=== PATIENT | male | born 1970 | race African-American/Black ===

== ENCOUNTER 2018-07-15 17:55 | Emergency (ER) | payer SELFPAY ==
[~2018-07-15] VITALS: Ht 172.7 cm; Wt 61.5 kg
--- NOTE | 2018-07-15 18:06 | PHYS DOC ---
Adult General Chief Complaint Chief Complaint: FINGER INJURY HPI HPI Patient is a 47 year old M who was using a grinder operator external tool last week and cut his L index finger. He was not seen at that time and states it was a minor cut but now the finger is very swollen and tender. He thinks his last tetanus was maybe 5 years ago. Pt is R hand dominant. He denies any significant medical history, specifically he is not diabetic. Review of Systems Review of Systems Constitutional: Denies fever or chills Respiratory: Denies cough or shortness of breath Cardiovascular: Denies chest pain GI: Denies abdominal pain, nausea, vomiting, bloody stools or diarrhea Musculoskeletal: Denies back pain. Reports L finger pain. Integument: Reports swelling and redness finger. Neurologic: Denies headache, focal weakness or sensory changes All other systems were reviewed and found to be within normal limits, except as documented in this note. Current Medications Current Medications Current Medications Medications (Trade) Dose Ordered Sig/Isidoro Start Time Stop Time Status Last Admin Dose Admin Clindamycin Phosphate 50 ml @ 100 mls/hr 1X ONCE 07/15/18 18:15 07/15/18 18:44 DC 07/15/18 18:15 100 MLS/HR Diphtheria/ Tetanus/Acell Pertussis (Boostrix) 0.5 ml ONCE ONCE 07/15/18 18:15 07/15/18 18:16 DC 07/15/18 18:15 0.5 ML Allergies Allergies Allergies Coded Allergies Type Severity Reaction Last Updated Verified No Known Drug Allergies 07/15/18 No Physical Exam Physical Exam Constitutional: Well developed, well nourished, no acute distress, non-toxic appearance. Neck: Normal range of motion, no tenderness, supple, no stridor. Cardiovascular:Heart rate regular rhythm, no murmur Lungs & Thorax: Bilateral breath sounds clear to auscultation Abdomen: Bowel sounds normal, soft, no tenderness, no masses, no pulsatile masses. Skin: Erythema and swelling of L index finger. No obvious laceration noted. Back: No tenderness, no CVA tenderness. Extremities: Pain in L index finger, swelling and pain from MCP to fingertip. He has normal cap refill, but limited ROM concerning for tenosynovitis. Neurologic: Alert and oriented X 3, normal motor function, normal sensory function, no focal deficits noted. Psychologic: Affect normal, judgement normal, mood normal. Current Patient Data Vital Signs Vital Signs Date Time Temp Pulse Resp B/P (MAP) Pulse Ox O2 Delivery O2 Flow Rate FiO2 07/15/18 19:55 98.1 84 126/68 (87) 98 98.1 07/15/18 19:16 16 07/15/18 18:05 Room Air Lab Values Laboratory Tests Test 07/15/18 18:20 07/15/18 18:30 White Blood Count 8.7 x10^3/uL (4.0-11.0) Red Blood Count 4.79 x10^6/uL (4.30-5.70) Hemoglobin 15.9 g/dL (13.0-17.5) Hematocrit 45.1 % (39.0-53.0) Mean Corpuscular Volume 94 fL (79-100) Mean Corpuscular Hemoglobin 33 pg (25-35) Mean Corpuscular Hemoglobin Concent 35 g/dL (31-37) Red Cell Distribution Width 13.2 % (11.5-14.5) Platelet Count 315 x10^3/uL (140-400) Neutrophils (%) (Auto) 61 % (31-73) Lymphocytes (%) (Auto) 27 % (24-48) Monocytes (%) (Auto) 7 % (0-9) Eosinophils (%) (Auto) 4 % (0-3) H Basophils (%) (Auto) 1 % (0-3) Neutrophils # (Auto) 5.3 x10^3uL (1.8-7.7) Lymphocytes # (Auto) 2.4 x10^3/uL (1.0-4.8) Monocytes # (Auto) 0.6 x10^3/uL (0.0-1.1) Eosinophils # (Auto) 0.4 x10^3/uL (0.0-0.7) Basophils # (Auto) 0.1 x10^3/uL (0.0-0.2) Sodium Level 141 mmol/L (136-145) Potassium Level 3.8 mmol/L (3.5-5.1) Chloride Level 103 mmol/L (98-107) Carbon Dioxide Level 31 mmol/L (21-32) Anion Gap 7 (6-14) Blood Urea Nitrogen 11 mg/dL (8-26) Creatinine 1.1 mg/dL (0.7-1.3) Estimated GFR (Cockcroft-Gault) 87.2 BUN/Creatinine Ratio 10 (6-20) Glucose Level 98 mg/dL (70-99) Calcium Level 9.3 mg/dL (8.5-10.1) Total Bilirubin 0.9 mg/dL (0.2-1.0) Aspartate Amino Transferase (AST) 11 U/L (15-37) L Alanine Aminotransferase (ALT) 14 U/L (16-63) L Alkaline Phosphatase 77 U/L (46-116) Total Protein 8.3 g/dL (6.4-8.2) H Albumin 3.6 g/dL (3.4-5.0) Albumin/Globulin Ratio 0.8 (1.0-1.7) L Lactic Acid Level 1.3 mmol/L (0.4-2.0) Laboratory Tests 07/15/18 18:20 Laboratory Tests 07/15/18 18:20 Microbiology 07/15/18 Blood Culture - Preliminary, Resulted NO GROWTH AFTER 4 DAYS EKG EKG [] Radiology/Procedures Radiology/Procedures Xray shows possible gas and cannot r/o osteomyelitis. Course & Med Decision Making Course & Med Decision Making Pertinent Labs and Imaging studies reviewed. (See chart for details) Discussed test results with pt, with clinical symptoms of tenosynovitis and possible osteomyelitis on xray, I recommended admission for IV abx and ortho consult. Pt declines admission. He wants to try oral antibiotics at this time. I again emphasized that this infection could be very serious and that finger infections are difficult to treat and he is at risk of losing his finger or if worsens even his hand. Pt wants to go home. I have asked pt to be rechecked in 24-48 hours and sooner if worsens. Discussed that if finger is the same or worse after 48 hours, he will need admission and he agrees. Dragon Disclaimer Dragon Disclaimer This electronic medical record was generated, in whole or in part, using a voice recognition dictation system. Departure Departure Impression: Primary Impression: Finger infection Additional Impression: Tenosynovitis Disposition: HOME, SELF-CARE Condition: IMPROVED Referrals: RAFAT LEDESMA MD Patient Instructions: Infectious Finger Tenosynovitis Additional Instructions: You really need IV antibiotics and further evaluation of this infection. You did not want to stay in the hospital so we will give oral antibiotics but please be rechecked in next 24-48 hours. Wash daily with antibacterial soap. Elevate. Scripts Hydrocodone/Apap 5-325 (NORCO 5-325 TABLET) 1 Each Tablet 1-2 TAB PO Q4-6HRS, #12 TAB Prov: QUYNH MÁRQUEZ 07/15/18 Cephalexin (KEFLEX) 500 Mg Capsule 1 CAP PO TID, #30 CAP Prov: QUYNH MÁRQUEZ 07/15/18 Sulfamethoxazole/Trimethoprim (BACTRIM DS TABLET) 1 Each Tablet 1 TAB PO BID, #20 TAB Prov: QUYNH MÁRQUEZ 07/15/18 Attending Signature Attending Signature I have reviewed the PA/ENGINE HEAD REPAIRER's note and plan of care. I was available for consultation as needed during the patient's visit in the emergency department. I agree with the clinical impression, plan, and disposition. Problem Qualifiers QUYNH MÁRQUEZ Jul 15, 2018 18:06 DONYA ESPINOZA DO Jul 20, 2018 09:46
[2018-07-15] MEDS: DIPHTH,PERTUSS(ACELL),TET TOX 0.5 ML DISP.SYRIN. VAX IM ONE (18:15)
[2018-07-15] MEDS: CLINDAMYCIN 600MG PREMIX 50 ML IV ONE (18:15)
[2018-07-15 18:36] LABS: BASO # 0.1 x10^3/uL (0.0-0.2); BASO % 1 % (0-3); EOS # 0.4 x10^3/uL (0.0-0.7); EOS % 4 % (0-3); HEMATOCRIT 45.1 % (39.0-53.0); HEMOGLOBIN 15.9 g/dL (13.0-17.5); LYMPH # 2.4 x10^3/uL (1.0-4.8); LYMPH % 27 % (24-48); MEAN CORPUSCULAR HEMOGLOBIN 33 pg (25-35); MEAN CORPUSCULAR HGB CONC 35 g/dL (31-37); MEAN CORPUSCULAR VOLUME 94 fL (79-100); MONO # 0.6 x10^3/uL (0.0-1.1); MONO % 7 % (0-9); NEUT # 5.3 x10^3uL (1.8-7.7); NEUT % 61 % (31-73); PLATELET COUNT 315 x10^3/uL (140-400); RED BLOOD COUNT 4.79 x10^6/uL (4.30-5.70); RED CELL DISTRIBUTION WIDTH 13.2 % (11.5-14.5); WHITE BLOOD COUNT 8.7 x10^3/uL (4.0-11.0)
[2018-07-15 18:41] LABS: CALCIUM 9.3 mg/dL (8.5-10.1); CREATININE 1.1 mg/dL (0.7-1.3); GFR 87.2; POTASSIUM 3.8 mmol/L (3.5-5.1)
--- NOTE | 2018-07-15 18:44 | RAD ---
Examination: HAND LEFT 3V History: LACERATION AND INFECTION TO 2ND FINGER Comparison/Correlation: None Findings: Total 3 images of the left hand were obtained by portable technique. Diffuse soft tissue swelling of the left second digit is noted. Linear lucency which may represent soft tissue gas along the ulnar aspect of the second digit noted. There is no periosteal reaction identified. No focal bony destruction or needed. No radiopaque foreign body. Other digits are normal. Impression: Secondary to soft tissue swelling. Possibility of soft tissue gas. No bony destruction. If osteomyelitis is a concern, consider further imaging. Electronically signed by: Pablo Stewart MD (07/15/2018 6:41 PM) [facility]
[2018-07-15 18:47] LABS: ALBUMIN 3.6 g/dL (3.4-5.0); ALBUMIN/GLOBULIN RATIO 0.8 (1.0-1.7); TOTAL BILIRUBIN 0.9 mg/dL (0.2-1.0); TOTAL PROTEIN 8.3 g/dL (6.4-8.2)
[2018-07-15] MEDS ORDERED: CEPH-264 PO (19:40)
[2018-07-15] MEDS ORDERED: HYDR-971 PO (19:40)
[2018-07-15] MEDS ORDERED: SULF1TAB24 PO (19:40)
[2018-07-15 19:55] VITALS: BP 126/68
== END 2018-07-15 19:59 | disposition home or self-care (01) ==
LOC: ER 17:55
DX: M65.842 Other synovitis and tenosynovitis, left hand (principal); L53.8 Other specified erythematous conditions
CPT/HCPCS: 36415; 73130; 80053; 83605; 85025; 87040; 90471; 90715; 96365; 99285; J3490